=== PATIENT | female | born 1950 | race Caucasian/White ===

== ENCOUNTER 2018-09-30 12:21 | Emergency (ER) | payer MEDICARE, OTHER, SELFPAY ==
[2018-09-30 12:22] VITALS: BP 125/63; PULSE 90; RESP 23; TEMP 36.4; O2SAT 93; BMI 30.2
--- NOTE | 2018-09-30 12:33 | XR_ITS ---
XR chest 2V HISTORY: Shortness of air, chest pain, COPD ITS.REASON: chest pain ORDERING PHYSICIAN: Mazin Bhatia MD PATIENT AGE: 68 years COMPARISON: 02/26/2009 FINDINGS: The cardiomediastinal silhouette and pulmonary vascularity are within normal limits. Old granulomatous disease. COPD. Atelectatic or fibrotic change in the right midlung.. There is patchy density in the left lower lobe which may related to an area of atelectasis or infiltrate versus progressive chronic changes. The remaining lungs are clear. No acute bony findings. IMPRESSION: COPD with patchy density in the left lung base. Cannot exclude underlying atelectasis or infiltrate
--- NOTE | 2018-09-30 12:34 | PC.NURSE ---
aspirin given by [facility] [id number]
--- NOTE | 2018-09-30 12:39 | PC.NURSE ---
pt gone to xray
--- NOTE | 2018-09-30 12:40 | HMH.EDGENADL ---
ED Disposition Clinical Impression: Precordial chest pain Disposition: Home, Self-Care Condition on Discharge: Good Instructions: DI for Chest Pain Additional Instructions: See Dr. Torres, LISY Walker, for Dr. Torres Wednesday in the office as instructed. Stop taking hydralazine. Increase metoprolol as instructed. Additional instructions for CHEST PAIN: Return immediately if worsening chest pain, vomiting, shortness of breath, fever, coughing of blood. Referrals: Yuridia Joseph [Primary Care Provider] - - Critical Care Critical Care Time: No Attestation: On 09/30/18, the high probability of a clinically significant, sudden or life threatening deterioration of the following system(s) required my full and direct attention, intervention and personal management. The time I documented below is in addition to time spent performing reported procedures but includes the following listed in this critical care notation. Medical Decision Making - Manny Inquiry Pt receiving controlled substance: No Vital Signs: 09/30/18 12:22 09/30/18 13:30 09/30/18 14:27 Temperature 97.6 F Temperature Source Oral Pulse Rate [Left Radial] 90 70 78 Respiratory Rate 23 Blood Pressure [Right Arm] 125/63 117/60 111/60 Blood Pressure Mean [Right Arm] 83 79 77 Blood Pressure Source [Right Arm] Automatic Cuff Blood Pressure Position [Right Arm] Sitting 02 Sat by Pulse Oximetry 93 L 93 L 95 Oxygen Delivery Method Room Air 09/30/18 15:00 09/30/18 15:50 Temperature Temperature Source Pulse Rate [Left Radial] 87 81 Respiratory Rate Blood Pressure [Right Arm] 119/61 134/80 Blood Pressure Mean [Right Arm] 80 98 Blood Pressure Source [Right Arm] Blood Pressure Position [Right Arm] 02 Sat by Pulse Oximetry 96 97 Oxygen Delivery Method - Lab Data Lab Results 09/30/18 12:40: WBC 9.1, RBC 3.83 L, Hgb 11.9 L, Hct 35.4 L, MCV 92.4, MCH 30.9, MCHC 33.5, RDW 14.4, Plt Count 183, MPV 8.6, Neut % (Auto) 84.7 H, Lymph % (Auto) 9.4 L, Holmes % (Auto) 4.8, Eos % (Auto) 0.7, Baso % (Auto) 0.5, Neut # (Auto) 7.7, Lymph # (Auto) 0.9, Holmes # (Auto) 0.4, Eos # (Auto) 0.1, Baso # (Auto) 0.1 09/30/18 12:40: Sodium 137, Potassium 3.8, Chloride 102, Carbon Dioxide 27, Anion Gap 11.8, BUN 25 H, Creatinine 1.27 H, Estimated Creat Clear 56, Estimated GFR 42 L, Est GFR ( Amer) 50 L, Glucose 256 H, Calcium 8.6, Troponin I < 0.02 09/30/18 15:20: Troponin I < 0.02 Result diagrams: 09/30/18 12:40 09/30/18 12:40 Orders (Tests/Meds): ED MEDICATIONS Discontinued Medications Generic Name Dose Route Start Last Admin Trade Name Freq PRN Reason Stop Dose Admin Perflutren Lipid Microsphere 1 mg 09/30/18 15:31 Definity Us Echo Contrast 2ml Vial IV 09/30/18 15:32 ONCE ONE Perflutren Lipid Microsphere 1 mg 09/30/18 15:34 Definity Us Echo Contrast 2ml Vial IV 09/30/18 15:35 ONCE ONE ORDERS Category Date Time Status Drug Screen,Urine Stat Lab 09/30/18 13:02 Ordered - Radiology Data #1 Image(s): Chest Image Reviewed: Yes I reviewed the patient's radiology image Calcified granulomas, scar R mid-lung. - ECG Data Tracing #1 EKG interpreted by Mazin Bhatia MD: Rhythm: sinus Rate: 97 [place]: normal Ectopy: none Conduction: QTC [address] Segment Changes: none T Wave Changes: none Q Waves: none No evidence of acute ischemia or injury Prior electrocardiagrams reviewed. No change from prior tracings. - Physician Consults Physician Consulted: LISY Walker, for Dr. Torres Time: 14:00 Reason -: Cardiology Eval/Care Comment/Response: He will see the patient Medical Decision Narrative: 12:05 PM: Call placed to [place] for discharge summary. Call placed to LISY Walker, for Dr. Torres for consultation Tahir reports echocardiogram normal to hyperdynamic. If second troponin normal, discharged to home and follow-up in their office Wednesday and they wi
--- NOTE | 2018-09-30 12:53 | PC.NURSE ---
pt return from xray
[2018-09-30 13:03] LABS: Basophils # 0.1 K/mm3 (0-0.2); Basophils % 0.5 % (0.1-2.0); Eosinophils # 0.1 K/mm3 (0.0-0.4); Eosinophils % 0.7 % (0.1-12.0); Hematocrit 35.4 % (37.0-47.0); Hemoglobin 11.9 g/dL (12.2-16.2); Lymphocytes # 0.9 K/mm3 (0.7-4.5); Lymphocytes % 9.4 % (10-50); Mean Corpuscular HGB Conc 33.5 g/dL (31.8-35.4); Mean Corpuscular Hemoglobin 30.9 pg (27.0-31.2); Mean Corpuscular Volume 92.4 fl (81-99); Mean Platelet Volume 8.6 fl (7.4-10.4); Monocytes # 0.4 K/mm3 (0.1-1.0); Monocytes % 4.8 % (1.7-9.3); Neutrophils # 7.7 K/mm3 (1.8-7.8); Neutrophils % 84.7 % (37.0-80.0); Platelet Count 183 K/mm3 (142-424); Red Blood Count 3.83 M/mm3 (4.20-5.40); Red Cell Distribution Width 14.4 % (11.5-17.5); White Blood Count 9.1 K/mm3 (4.8-10.8)
--- NOTE | 2018-09-30 13:12 | PC.NURSE ---
called [facility] to request er records from 09/29 visit
[2018-09-30 13:18] LABS: Anion Gap 11.8 mEq/L (5-15); Blood Urea Nitrogen 25 mg/dL (7-18); Calcium 8.6 mg/dL (8.5-10.1); Carbon Dioxide 27 mmol/L (21.0-32.0); Chloride 102 mmol/L (98-107); Creatinine Clearance Estimated 56 mL/min (50-200); Creatinine,Serum 1.27 mg/dL (0.55-1.02); Estimated Glomerular Filt Rate 42 ml/min (>60); GFR (African American) 50 ML/MIN (>60); Glucose 256 mg/dL (74-106); Potassium 3.8 mmoL/L (3.5-5.1); Sodium 137 mmol/L (136-145); Troponin I < 0.02 ng/ml (0.00-0.06)
[2018-09-30 13:30] VITALS: BP 117/60; PULSE 70; O2SAT 93
--- NOTE | 2018-09-30 14:02 | PC.NURSE ---
called [facility] records to check on status of records being sent
--- NOTE | 2018-09-30 14:15 | PC.NURSE ---
Tahir WASSERMAN at bedside
--- NOTE | 2018-09-30 14:19 | CA_ITS ---
PROCEDURE: 2-D M-mode and color Doppler study INDICATIONS FOR THE TEST: Chest pain+ COPD+ Heart Murmur+ Tobacco SmokingEX Palpitations+ Fatigue+ Syncope Edema+ Hypertension+Diabetes Mellitus Rheumatic Fever+ SOB+MCKAY+Obesity+Hyperlipidemia+ Family History HD Additional History PATIENT INFORMATION HEIGHT: 66 WEIGHT: 187 GENDER: Female B/P: 117/60 2-D/M-MODE INTERPRETATION: 2-D MEASUREMENTS OBSERVED VALUES IN CMS Right Ventricular Dimension (RVDd) 3.0 Interventricular Septum (Thickness)(IVsd) 1.0 Left Ventricular Internal Dimensions(LVIDd) 3.8 Left Ventricular Posterior Wall (Thickness)(LVPWd) 1.0 Aortic Root 3.2 Aortic Cusp Separation 2.1 Left Atrial Dimensions (LAD) 4.3 2D 1. Technically difficult study due to patient's factor and poor acoustic windows. Definity contrast was utilized to delineate endocardial surfaces. 2. Left atrium is mildly enlarged, left ventricle is normal size, mild concentric left ventricular hypertrophy, visually estimated ejection fraction over 65%, left ventricle is hyperdynamic, there is no regional wall motion abnormality. 3. The right atrium and right ventricle are mildly enlarged with normal contractility. 4. The aortic valve is minimally thickened and fibrosed. 5. The mitral valve has mitral calcification, leaflets are minimally thickened. 6. Tricuspid valve is grossly normal. 7. The pulmonic valve is poorly visualized. 8. No significant pericardial effusion noted. DOPPLER INTERROGATION: Doppler interrogation of the aortic, mitral and tricuspid valvular presence of mild mitral and tricuspid regurgitation, tricuspid regurgitation jet velocity is inadequate for calculation of the right ventricular systolic pressure, grade 1 diastolic dysfunction seen with tissue Doppler evidence of raised left atrial pressure. CONCLUSION: 1. Technically difficult study because of the patient's factor and poor acoustic windows, Definity contrast was placed to delineate endocardial surfaces. 2. Mildly enlarged left atrium, normal left ventricular size, mild concentric left ventricular hypertrophy, visually estimated ejection fraction of over 65% with no regional wall motion abnormality, left ventricle is hyperdynamic. Grade 1 diastolic dysfunction seen with tissue Doppler evidence of raised left atrial pressure. 3. Mild mitral and tricuspid regurgitation 4. No significant pericardial effusion noted.
[2018-09-30 14:27] VITALS: BP 111/60; PULSE 78; O2SAT 95
--- NOTE | 2018-09-30 14:28 | PC.NURSE ---
cardiovascular surgical tech @ bedside to do echo
[2018-09-30 15:00] VITALS: BP 119/61; PULSE 87; O2SAT 96
--- NOTE | 2018-09-30 15:38 | HMH.CNCARD ---
History of Present Illness Consult date: 09/30/18 Consult reason: chest pain Chief complaint: chest pain Additional Medical History:: 1. DM, previously treated for 10 yrs, now on no meds per patient 2. HTN 3. HLD, on statin 4. Palpitations 5. GERD 6. Poor historian 7. History of tobacco use of 2 packs/day for 10 years discontinued more than 1 year ago A. Reportedly has COPD History of present illness: History from patient and . She has been having problems with chest pain for over a week. She has been to [facility] emergency department 3 different times. Twice last week, one day apart. The second time she says that she was transferred to [facility] and was there for a couple of days. She says they did serial cardiac enzymes and EKGs. She denies having stress test, echocardiogram, or heart cath. She also was at the emergency room yesterday. She saw her primary care doctor this morning and was started on some new medications. She has been told that she is having panic attacks. She had another episode today and says that she is through with [place] . Brought here by ambulance. She says the episodes consist of burning in her sternal area of her chest and pain in both arms with shortness of breath, nausea, diaphoresis. Episodes usually last about 1/2-hour. states that her blood pressure and heart rate go up with the episodes. She has taken her 's nitroglycerin once last week which relieved the pain. She says that she is currently pain-free. She denies ever having a previous cardiac work-up, no prior stress test or cardiac cath. States she has no known heart disease The above per Dr. Bhatia Cardiology consulted for evaluation recommendations The patient does relate some discomfort in the back between her shoulder blades which seems to be associated with the episodes of chest pain although the patient is not entirely clear about this. At one point she says the symptoms have been going on for 2 weeks and another time she says they have been going on for several months. Patient is a very difficult historian and the story seems to change slightly with more invasive questioning. Echocardiogram performed today shows preserved to slightly hyperdynamic left ventricular ejection fraction with mild valvular insufficiencies. No appreciable wall motion abnormality noted. EKG is sinus rhythm with with telemetry showing frequent PACs. [facility] History Medical History: Reports:: Hyperlipidemia, Hypertension Denies:: Diabetes Mellitus Type 1, Diabetes Mellitus Type 2, Myocardial Infarction - *Social History Smoking Status: Former smoker Alcohol Intake: never Substance Use Type: crack/cocaine *Occupational Status:: retired *Travel in the last 8 weeks: None - Psychiatric History Expresses thoughts of harming self/others: None Suicide Plan Description: No Plan Family Hx:: Other (Pacemaker, mother) Meds Home Medications Medication Instructions Recorded Confirmed Type Fluoxetine HCl 20 mg PO DIRECTED 09/30/18 09/30/18 History Furosemide [Lasix 40mg tab] 40 mg PO DIRECTED 09/30/18 09/30/18 History Gabapentin [Gabapentin 300mg Cap] 300 mg PO DIRECTED 09/30/18 09/30/18 History Hydralazine HCl 50 mg PO DIRECTED 09/30/18 09/30/18 History Metoprolol Succinate [Toprol Xl] 100 mg PO DIRECTED 09/30/18 09/30/18 History Naltrexone HCl/Bupropion HCl 1 each PO DIRECTED 09/30/18 09/30/18 History [Contrave ER 8-90 mg Tablet] Pantoprazole Sodium [Protonix 40mg 40 mg PO DIRECTED 09/30/18 09/30/18 History tablet] Pravastatin Sodium [Pravachol] 20 mg PO DIRECTED 09/30/18 09/30/18 History Tizanidine HCl 4 mg PO DIRECTED 09/30/18 09/30/18 History Venlafaxine HCl 75 mg PO DIRECTED 09/30/18 09/30/18 History Allergies Allergy/AdvReac Type Severity Reaction Status Date / Time codeine [CODEINE] Allergy Mild Verified 09/30/18 12:35 Review of Systems - *Cardiovascul
[2018-09-30 15:41] LABS: Troponin I < 0.02 ng/ml (0.00-0.06)
[2018-09-30 15:50] VITALS: BP 134/80; PULSE 81; O2SAT 97
[2018-09-30 16:03] VITALS: BP 134/80; PULSE 86; RESP 19; TEMP 36.3; O2SAT 94
== END 2018-09-30 16:03 | disposition home or self-care (01) ==
PROVIDERS: Emergency Provider Emergency Medicine; PCP Family Medicine
DX: R07.9 Chest pain, unspecified (principal); F41.0 Panic disorder [episodic paroxysmal anxiety]; Z51.81 Encounter for therapeutic drug level monitoring; Z88.5 Allergy status to narcotic agent; E78.5 Hyperlipidemia, unspecified; I10 Essential (primary) hypertension; Z87.891 Personal history of nicotine dependence
CPT/HCPCS: 36415; 71046; 80048; 84484; 85025; 93005; 93306; 99284

== ENCOUNTER → 2018-10-20 08:20 | Outpatient (CLI) | payer MEDICARE, OTHER, SELFPAY ==
[2018-10-20 10:07] LABS: Anion Gap 15.4 mEq/L (5-15); Blood Urea Nitrogen 31 mg/dL (7-18); Calcium 9.4 mg/dL (8.5-10.1); Carbon Dioxide 30 mmol/L (21.0-32.0); Chloride 103 mmol/L (98-107); Creatinine,Serum 1.46 mg/dL (0.55-1.02); Estimated Glomerular Filt Rate 36 ml/min (>60); GFR (African American) 43 ML/MIN (>60); Glucose 101 mg/dL (74-106); Potassium 4.4 mmoL/L (3.5-5.1); Sodium 144 mmol/L (136-145)
== END ==
PROVIDERS: Visit Provider Nurse Practitioner Family
DX: E11.69 Type 2 diabetes mellitus with other specified complication (principal); E66.9 Obesity, unspecified; E78.5 Hyperlipidemia, unspecified; F14.11 Cocaine abuse, in remission; I10 Essential (primary) hypertension; I20.9 Angina pectoris, unspecified; R06.00 Dyspnea, unspecified; Z87.891 Personal history of nicotine dependence
CPT/HCPCS: 36415; 80048

== ENCOUNTER 2022-11-19 22:36 | Observation (INO) | payer MEDICARE, OTHER, SELFPAY ==
[2022-11-19 22:36] VITALS: BP 172/105; PULSE 113; RESP 24; TEMP 37.1; O2SAT 98; BMI 32.4
--- NOTE | 2022-11-19 22:37 | CT_ITS ---
PROCEDURE INFORMATION: Exam: CT Head Without Contrast Exam date and time: 11/19/2022 10:22 PM Age: 72 years old Clinical indication: Stroke-like symptoms; Altered mental status/memory loss; Additional info: Stroke alert TECHNIQUE: Imaging protocol: Computed tomography of the head without contrast. Radiation optimization: All CT scans at this facility use at least one of these dose optimization techniques: automated exposure control; mA and/or kV adjustment per patient size (includes targeted exams where dose is matched to clinical indication); or iterative reconstruction. Other technique: STROKE PROTOCOL was implemented. REPORTING DATA: Count of CT and Cardiac NM exams in prior 12 months: This patient has received 0 known CTs and 0 known cardiac nuclear medicine studies in the 12 months prior to the current study. COMPARISON: No relevant prior studies available. FINDINGS: Brain: Atrophy and chronic small vessel ischemic changes. No hemorrhage. No mass effect or midline shift. Cerebral ventricles: No ventriculomegaly. Paranasal sinuses: Visualized sinuses are unremarkable. No fluid levels. Mastoid air cells: Visualized mastoid air cells are well aerated. Bones/joints: Unremarkable. No acute fracture. Soft tissues: Unremarkable. IMPRESSION: Chronic changes in the brain but no acute intracranial abnormality. ASSESSMENT: ASPECTS ([place] Stroke Program Early CT Score) is 10.
--- NOTE | 2022-11-19 22:42 | XR_ITS ---
PROCEDURE INFORMATION: Exam: XR Pelvis Exam date and time: 11/19/2022 11:45 PM Age: 72 years old Clinical indication: Injury or trauma; Fall; Blunt trauma (contusions or hematomas); Does not apply; Pelvic region TECHNIQUE: Imaging protocol: Radiologic exam of the pelvis. Views: 1 or 2 view. COMPARISON: CT LUMBAR SPINE WO CON 11/19/2022 11:42 PM FINDINGS: Bones/joints: Unremarkable. No acute fracture. Soft tissues: Unremarkable. IMPRESSION: No acute findings.
--- NOTE | 2022-11-19 22:42 | XR_ITS ---
PROCEDURE INFORMATION: Exam: XR Chest Exam date and time: 11/19/2022 11:45 PM Age: 72 years old Clinical indication: Injury or trauma; Fall; Blunt trauma (contusions or hematomas) TECHNIQUE: Imaging protocol: Radiologic exam of the chest. Views: 1 view. COMPARISON: CT CHEST WO CON 11/19/2022 11:44 PM FINDINGS: Lungs: Coarse interstitial lung markings likely chronic. Granulomatous change. No consolidation. Pleural spaces: Unremarkable. No pleural effusion. No pneumothorax. Heart/Mediastinum: Unremarkable. No cardiomegaly. Bones/joints: Unremarkable. IMPRESSION: No acute findings.
--- NOTE | 2022-11-19 22:42 | CT_ITS ---
PROCEDURE INFORMATION: Exam: CT Cervical Spine Without Contrast Exam date and time: 11/19/2022 11:37 PM Age: 72 years old Clinical indication: Injury or trauma; Fall TECHNIQUE: Imaging protocol: Computed tomography of the cervical spine without contrast. Radiation optimization: All CT scans at this facility use at least one of these dose optimization techniques: automated exposure control; mA and/or kV adjustment per patient size (includes targeted exams where dose is matched to clinical indication); or iterative reconstruction. REPORTING DATA: Count of CT and Cardiac NM exams in prior 12 months: This patient has received 0 known CTs and 0 known cardiac nuclear medicine studies in the 12 months prior to the current study. COMPARISON: CT HEAD/BRAIN WO CON 11/19/2022 10:22 PM FINDINGS: Bones/joints: No acute fracture. Normal alignment. No significant disc bulge or herniation. No severe spinal canal stenosis. No significant neural foraminal narrowing. Lungs: Lung apices are normal. Soft tissues: Unremarkable. IMPRESSION: No acute findings.
--- NOTE | 2022-11-19 22:42 | CT_ITS ---
PROCEDURE INFORMATION: Exam: CT Lumbar Spine Without Contrast Exam date and time: 11/19/2022 11:42 PM Age: 72 years old Clinical indication: Injury or trauma; Fall TECHNIQUE: Imaging protocol: Computed tomography of the lumbar spine without contrast. Radiation optimization: All CT scans at this facility use at least one of these dose optimization techniques: automated exposure control; mA and/or kV adjustment per patient size (includes targeted exams where dose is matched to clinical indication); or iterative reconstruction. REPORTING DATA: Count of CT and Cardiac NM exams in prior 12 months: This patient has received 0 known CTs and 0 known cardiac nuclear medicine studies in the 12 months prior to the current study. COMPARISON: CT THORACIC SPINE WO CON 11/19/2022 11:39 PM FINDINGS: Bones/joints: No acute fracture. Normal alignment. No significant disc bulge or herniation. No severe spinal canal stenosis. No significant neural foraminal narrowing. Soft tissues: Unremarkable. IMPRESSION: No acute findings.
--- NOTE | 2022-11-19 22:42 | CT_ITS ---
PROCEDURE INFORMATION: Exam: CT Chest Without Contrast; Diagnostic Exam date and time: 11/19/2022 11:44 PM Age: 72 years old Clinical indication: Injury or trauma; Fall TECHNIQUE: Imaging protocol: Diagnostic computed tomography of the chest without contrast. Radiation optimization: All CT scans at this facility use at least one of these dose optimization techniques: automated exposure control; mA and/or kV adjustment per patient size (includes targeted exams where dose is matched to clinical indication); or iterative reconstruction. REPORTING DATA: Count of CT and Cardiac NM exams in prior 12 months: This patient has received 0 known CTs and 0 known cardiac nuclear medicine studies in the 12 months prior to the current study. COMPARISON: CT THORACIC SPINE WO CON 11/19/2022 11:39 PM FINDINGS: Lungs: 3 mm pulmonary nodule in the right lower lobe. No consolidation. No masses. Pleural spaces: Unremarkable. No pneumothorax. No pleural effusion. Heart: Unremarkable. No cardiomegaly. No pericardial effusion. Lymph nodes: Unremarkable. No enlarged lymph nodes. Vasculature: Unremarkable. No aortic aneurysm. Diffuse esophageal wall thickening concerning for esophagitis. Bones/joints: Unremarkable. No acute fracture. Soft tissues: Unremarkable. IMPRESSION: No acute posttraumatic findings. Diffuse esophageal wall thickening concerning for esophagitis.
--- NOTE | 2022-11-19 22:42 | CT_ITS ---
PROCEDURE INFORMATION: Exam: CT Abdomen And Pelvis Without Contrast Exam date and time: 11/19/2022 11:47 PM Age: 72 years old Clinical indication: Injury or trauma; Fall TECHNIQUE: Imaging protocol: Computed tomography of the abdomen and pelvis without contrast. Radiation optimization: All CT scans at this facility use at least one of these dose optimization techniques: automated exposure control; mA and/or kV adjustment per patient size (includes targeted exams where dose is matched to clinical indication); or iterative reconstruction. REPORTING DATA: Count of CT and Cardiac NM exams in prior 12 months: This patient has received 0 known CTs and 0 known cardiac nuclear medicine studies in the 12 months prior to the current study. COMPARISON: CR XR PELVIS 1-2V 11/19/2022 11:45 PM FINDINGS: Tubes, catheters and devices: Hoover catheter. Mediastinal space: Distal esophageal wall thickening. Liver: Normal. No mass. Gallbladder and bile ducts: Normal. No calcified stones. No ductal dilation. Pancreas: Normal. No ductal dilation. Spleen: Calcifications in the spleen. Adrenal glands: Normal. No mass. Kidneys and ureters: Normal. No hydronephrosis. Stomach and bowel: Diverticulosis in the sigmoid without diverticulitis. No colitis or small bowel obstruction Appendix: No evidence of appendicitis. Intraperitoneal space: Unremarkable. No free air. No significant fluid collection. Vasculature: Unremarkable. No abdominal aortic aneurysm. Lymph nodes: Unremarkable. No enlarged lymph nodes. Urinary bladder: Unremarkable as visualized. Reproductive: Unremarkable as visualized. Bones/joints: Unremarkable. No acute fracture. Soft tissues: Unremarkable. IMPRESSION: No acute findings.
--- NOTE | 2022-11-19 22:42 | CT_ITS ---
PROCEDURE INFORMATION: Exam: CT Thoracic Spine Without Contrast Exam date and time: 11/19/2022 11:39 PM Age: 72 years old Clinical indication: Injury or trauma; Fall TECHNIQUE: Imaging protocol: Computed tomography of the thoracic spine without contrast. Radiation optimization: All CT scans at this facility use at least one of these dose optimization techniques: automated exposure control; mA and/or kV adjustment per patient size (includes targeted exams where dose is matched to clinical indication); or iterative reconstruction. REPORTING DATA: Count of CT and Cardiac NM exams in prior 12 months: This patient has received 0 known CTs and 0 known cardiac nuclear medicine studies in the 12 months prior to the current study. COMPARISON: CT CERVICAL SPINE WO CON 11/19/2022 11:37 PM FINDINGS: Bones/joints: No acute fracture. Normal alignment. No significant disc bulge or herniation. No severe spinal canal stenosis. No significant neural foraminal narrowing. Soft tissues: Unremarkable. IMPRESSION: Unremarkable CT Spine.
[2022-11-19 22:47] LABS: Microscopic, Urine URINE MICROSCOPIC (MICROSCOPIC)
[2022-11-19 22:50] LABS: Appearance,Urine CLEAR (Clear); Bilirubin,Urine Negative (Negative); Blood, Urine Negative (Negative); Color,Urine STRAW (Yellow); Glucose,Urine (UA) Negative (Negative); Ketones,Urine Negative (Negative); Leukocyte Esterase,Urine Negative (Negative); Nitrate,Urine Negative (Negative); PH,Urine 5.5 (5.0-8.5); Protein,Urine Negative (Negative); Specific Gravity, Urine 1.015 (1.005-1.030); Urobilinogen,Urine 0.2 EU/dl (0.2)
[2022-11-19 22:53] LABS: Chloride 107 mmol/L (98-107); Potassium 4.3 mmoL/L (3.5-5.1); Sodium 145 mmol/L (136-145)
[2022-11-19 22:55] LABS: Alanine Aminotransferase 23 U/L (12-78); Blood Urea Nitrogen 19 mg/dl (7-17); Estimated Glomerular Filt Rate 70 ml/min (>60); GFR (African American) 85 ML/MIN (>60)
[2022-11-19 22:56] LABS: Albumin Level 4.2 g/dl (3.5-5.0); Albumin/Globulin Ratio 1.3 (1.1-1.8); Alkaline Phosphatase 128 U/L (38-126); Anion Gap 16.3 mEq/L (5-15); Aspartate Amino Transferase 36 U/L (14-36); Bilirubin,Total < 0.1 mg/dl (0.2-1.3); Calcium 9.3 mg/dl (8.4-10.2); Carbon Dioxide 26 mmol/L (22.0-30.0); Creatine Kinase 82 U/L (30-135); Globulin 3.3 g/dL (1.3-3.2); Glucose 97 mg/dl (74-100); Total Protein,Serum 7.5 g/dl (6.3-8.2)
[2022-11-19 23:02] LABS: Activated Partial Thrombo Time 23.6 seconds (22.8-30.6); INR 0.87 (0.9-1.1); Prothrombin Time 9.5 seconds (10.1-12.5)
[2022-11-19 23:05] LABS: Squamous Epithelial Cell,Urine Occasional #/hpf (0-5)
[2022-11-19 23:05] LABS: Ethyl Alcohol 301 mg/dl (0-10)
[2022-11-19 23:08] LABS: Troponin I < 0.01 ng/ml (0.00-0.034)
--- NOTE | 2022-11-19 23:08 | PC.NURSE ---
ASSISTED RN IN PLACING URINARY CATH, BED CHANGED AND PATIENT REPOSITIONED FOR COMFORT, LIGHTS TURNED DOWN
[2022-11-19 23:31] VITALS: BP 197/93; PULSE 98; RESP 24; O2SAT 97
[2022-11-20] VITALS (17 sets, daily range): BP systolic 115–187; BP diastolic 56–86; PULSE 64–97; RESP 14–20; TEMP 36.6–37.2; O2SAT 92–99; BMI 30.9
--- NOTE | 2022-11-20 00:07 | PC.NURSE ---
pt vomited on herself while xr was at bedside, pt was cleaned up and changed into a new gown, sheets, and c-collar
[2022-11-20 00:48] LABS: Basophils # 0.1 K/mm3 (0-0.2); Basophils % 0.6 % (0.1-2.0); Eosinophils # 0.5 K/mm3 (0.0-0.4); Eosinophils % 4.5 % (0.1-12.0); Hematocrit 41.3 % (37.0-47.0); Hemoglobin 13.2 g/dL (12.2-16.2); Lymphocytes # 3.5 K/mm3 (0.7-4.5); Mean Corpuscular HGB Conc 31.9 g/dL (31.8-35.4); Mean Corpuscular Hemoglobin 30.8 pg (27.0-31.2); Mean Corpuscular Volume 96.4 fl (81-99); Mean Platelet Volume 9.4 fl (7.4-10.4); Monocytes # 0.5 K/mm3 (0.1-1.0); Monocytes % 4.8 % (1.7-9.3); Neutrophils # 6.4 K/mm3 (1.8-7.8); Neutrophils % 58.1 % (37.0-80.0); Platelet Count 312 K/mm3 (142-424); Red Blood Count 4.28 M/mm3 (4.20-5.40); Red Cell Distribution Width 15.1 % (11.5-17.5)
[2022-11-20 01:40] LABS: ABG Base Excess -2.1 mmol/L (-2.4-2.3); ABG Oxygen Saturation 96 % (90-100); ABG PCO2 40.1 mmhg (35.0-45.0); ABG PH 7.38 mmol/L (7.35-7.45); ABG PO2 88.8 mmhg (80-100); ABG TCO2 24.3 mmhg (23-27)
[2022-11-20 01:41] LABS: Allen's Test Patient Unable; Oxygen 2LPM %; Source Left Radial
[2022-11-20 01:45] LABS: Coronavirus 19, PCR Not Detected (NotDetected); Influenza A, PCR Not Detected (NotDetected); Influenza B, PCR Not Detected (NotDetected)
--- NOTE | 2022-11-20 02:00 | HMH.EDAMS ---
Discharge Plan Disposition Patient Disposition: Admitted Condition: Fair Clinical Impressions Clinical Impression: Fall, Alcohol intoxication, Esophagitis Discharge ED Provider: Holly Ron Altered Mental Status HPI General Chief Complaint: Altered Mental Status Stated Complaint: STROKE ALERT Time Seen by Provider: 11/19/22 22:40 Mode of Arrival: EMS Source of Information: Patient, Relative, EMS and Medical Record Limitations: Altered Mental Status Description of Symptoms (Recalled from ER Triage Doc. by RN): Pt c/o fall tonight. She c/o pain everywhere . She is Alert and oriented to name. Reports the year to be 1921 . She is unable to give a good history of what transpired today. EMS report she fell when her fell into her approx 1999 tonight. is also a poor historian of events. Since this time she has been not acting right . Pt has been yelling, cursing, and swinging arms at staff. She has vomitied several times in route, EMS gave zofran 4mg IVP. Scattered brusing & scabs noted t/o body. Dried dark brown appearance of emesis to pt's face. History of Present Illness HPI narrative: Patient is a 72-year-old female who is here secondary to mental status change. Patient fell tonight. EMS brought her and said that she was confused and her said that she was normal at 80 p.m. Patient was stroke alerted and went to CT. I saw the patient and put the patient in cervical collar. Patient does not give good history however is alert and oriented to person, place and initially told the nurses 1919 but later on told me 2022 but not situation. EMS stated the house situation looks bad. There is lots of holding of things in the house. And patient was laying in emesis and food products and garbage. Patient had stool diarrhea running down her leg. She had emesis around her mouth. Patient was given Zofran 4 mg IV push. Patient also has a history of fall. Patient does drink alcohol and said to the nursing staff that she drinks gin dim. Blood glucose was 167. complaint: altered mental status Onset (ago): hour(s) Timing confirmed by: spouse Severity: moderate Consistency of symptoms: constant Context: alcohol abuse and diabetes Associated symptoms: nausea/vomiting Treatments prior to arrival: IV fluid Related Data Home Medications Medication Instructions Recorded Confirmed gabapentin 300 mg capsule 300 mg PO DIRECTED Pain 09/30/18 10/03/18 pantoprazole 40 mg tablet,delayed 40 mg PO DAILY ppi 10/03/18 10/03/18 release tizanidine 4 mg capsule 4 mg PO ONCE PRN muscles 10/03/18 10/03/18 coenzyme Q10 100 mg capsule (Co 100 mg PO DAILY 11/23/18 11/23/18 Q-10) pravastatin 20 mg tablet 40 mg PO DAILY Cholesterol 11/23/18 Previous Rx's Medication Instructions Recorded aspirin 81 mg tablet,delayed 81 mg PO DAILY #30 tabs 10/03/18 release (Adult Low Dose Aspirin) lisinopril 40 mg tablet 40 mg PO BID #60 tabs 10/12/18 metoprolol succinate 100 mg 100 mg PO DAILY Hypertension #30 10/20/18 tablet,extended release 24 hr tabs furosemide 40 mg tablet 80 mg PO DAILY diuretic #60 tabs 11/23/18 isosorbide mononitrate 30 mg 30 mg PO DAILY #30 tabs 11/23/18 tablet,extended release 24 hr diltiazem HCl 120 mg 240 mg PO DAILY #90 caps 02/01/19 capsule,extended release 24 hr Allergies Allergy/AdvReac Type Severity Reaction Status Date / Time codeine [CODEINE] Allergy Mild Verified 11/23/18 13:51 [facility] Disclaimer: The information contained in this section may have been updated after the patient was seen, as this information can be updated by other users. Medical History (Updated 11/20/22 @ 02:11 by Fco Rey DNP) COPD (chronic obstructive pulmonary disease) Hyperlipidemia Hypertension Social History Smoking Status: Current every day smoker alcohol intake: never substance use type: crack/cocaine current occupational sta
--- NOTE | 2022-11-20 02:02 | EXP.HP ---
History of Present Illness *Admission Date: 11/20/22 *Reason for visit:: Fall *History of present illness: Ms. Parry is a 72-year-old female with a past medical history of COPD, home oxygen dependent at 2L, HTN and Hyperlipidemia. She presents to [facility] due to a fall that occurred in the home. Information for the H/P for the patient was obtained from the patient's who is also being admitted due to a fall in the home. The reports that the had fallen first, he reports that they had a bottle of wine in the home for special occasions and the drank the bottle of wine that he feels resulted in the patient falling, he reports that when he went to help the patient he fell. He reports that he called 911. EMS reported unsafe conditions and brought both the patient and the into the ER. In the ER, the patient underwent multiple imaging that included: CT head, Chest, Spine, and abdomen and pelvis that showed no acute findings. ABG was unremarkable. CBC and CMP were unremarkable. Alcohol level was 301. In the ER the patient was noted to be agitated and received Ativan 0.5 mg iv. The patient will be admitted with initial impression: Falls, Residence Manager will be consulted in the am for evaluation of home condition. [facility] Disclaimer: The information contained in this section may have been updated after the patient was seen, as this information can be updated by other users. Medical History (Updated 11/20/22 @ 02:11 by Fco Rey DNP) COPD (chronic obstructive pulmonary disease) Hyperlipidemia Hypertension Social History Smoking Status: Current every day smoker alcohol intake: never substance use type: crack/cocaine current occupational status: retired Travel in the last 8 weeks: Inside the [place] household members: spouse Review of Systems Review of Systems Review of systems:: unable to obtain Meds Home Medications and Allergies Home Medications Medication Instructions Recorded Confirmed Type gabapentin 300 mg capsule 300 mg PO DIRECTED Pain 09/30/18 10/03/18 History aspirin 81 mg tablet,delayed 81 mg PO DAILY #30 tabs 10/03/18 10/03/18 Rx release (Adult Low Dose Aspirin) pantoprazole 40 mg tablet,delayed 40 mg PO DAILY ppi 10/03/18 10/03/18 History release tizanidine 4 mg capsule 4 mg PO ONCE PRN muscles 10/03/18 10/03/18 History lisinopril 40 mg tablet 40 mg PO BID #60 tabs 10/12/18 10/12/18 Rx metoprolol succinate 100 mg 100 mg PO DAILY Hypertension #30 10/20/18 Rx tablet,extended release 24 hr tabs coenzyme Q10 100 mg capsule (Co 100 mg PO DAILY 11/23/18 11/23/18 History Q-10) furosemide 40 mg tablet 80 mg PO DAILY diuretic #60 tabs 11/23/18 Rx isosorbide mononitrate 30 mg 30 mg PO DAILY #30 tabs 11/23/18 11/23/18 Rx tablet,extended release 24 hr pravastatin 20 mg tablet 40 mg PO DAILY Cholesterol 11/23/18 History diltiazem HCl 120 mg 240 mg PO DAILY #90 caps 02/01/19 Rx capsule,extended release 24 hr New Prescriptions to Start Prescriptions: Allergies Allergy/AdvReac Type Severity Reaction Status Date / Time codeine [CODEINE] Allergy Mild Verified 11/23/18 13:51 Exam Data for Last 24 hours Vital signs and Labs for Last 24 Hours: Temp Pulse Resp BP Pulse Ox 98.7 F 78 16 155/75 H 96 11/19/22 22:36 11/20/22 01:30 11/20/22 01:30 11/20/22 01:30 11/20/22 01:30 Laboratory Results - last 24 hr 11/19/22 22:20: Urine Color Straw, Urine Appearance Clear, Urine pH 5.5, Ur Specific Bronson 1.015, Urine Protein Negative, Urine Glucose (UA) Negative, Urine Ketones Negative, Urine Blood Negative, Urine Nitrate Negative, Urine Bilirubin Negative, Urine Urobilinogen 0.2, Ur Leukocyte Esterase Negative, Urine RBC None, Urine WBC None, Ur Squamous Epith Cells Occasional, Urine Bacteria None 11/19/22 22:30: PT 9.5 L, INR 0.87 L, APTT 23.6 0
--- NOTE | 2022-11-20 02:18 | PC.NURSE ---
Called report to the floor
[2022-11-20 02:23] LABS: Amphetamine/Metha Screen,Urine Negative ng/ml (<1000); Barbiturates Screen,Urine Negative ng/ml (<200)
[2022-11-20 02:24] LABS: Benzodiazepines Screen,Urine Negative ng/ml (<200)
[2022-11-20 02:25] LABS: Cannabinoid Screen,Urine Positive ng/ml (<50); Cocaine Screen,Urine Negative ng/ml (<300)
--- NOTE | 2022-11-20 02:25 | ECG_ITS ---
APPROVED REPORT Exam: Resting ECG HR:86 bpm ECG Measurements Heart Rate 86 AXES AK 183 P 68 QRSd 93 QRS 53 QT 366 T 50 QTc 409 Conclusion SINUS RHYTHM Isolated Q in III BORDERLINE ECG UNCONFIRMED REPORT Electronically signed by : Dave Goff MD 11/20/2022 21:29:07
[2022-11-20 02:26] LABS: Methadone Screen,Urine Negative ng/ml (<300)
[2022-11-20 02:27] LABS: Opiate Screen,Urine Negative ng/ml (<300); Phencyclidine Screen,Urine Negative ng/ml (<25)
--- NOTE | 2022-11-20 02:42 | PC.NURSE ---
Pt arrived to the floor via stretcher @1902
--- NOTE | 2022-11-20 04:07 | PC.NURSE ---
Patient arrived to the floor. Patient received Ativan in ER before coming to the floor. Patient was resting. RN attempted to do admission, but patient would not stay awake. RN completed home medication reconciliation from home medication brought in. The rest of the admission was done with the medical history already provided in the chart. Patient is resting in bed. with the bed alarm on.
[2022-11-20 07:02] LABS: Troponin I < 0.01 ng/ml (0.00-0.034)
--- NOTE | 2022-11-20 07:15 | HMH.PHAINT1 ---
Pharmacy Intervention Comments: MEDICATION RECONCILIATION COMPLETED ON PATIENT USING EXTERNAL FILL HISTORY FROM PHARMACY. -DENISE FINN, HANNAHD
--- NOTE | 2022-11-20 08:14 | PC.NURSE ---
COURTESY TECH NOTE; ROUNDED ON PT 0800, PT DENIED NEED FOR ASSISTANCE WITH RESTROOM. ASSISTED PRIMARY TECH WITH BATHING, AND REPOSITIONING PT IN BED. PRIMARY TECH SCRUBBED PT FEET WITH WASHCLOTH AND SOAP, PT FEET ARE STAINED BROWN DESPITE SCRUBBING. PT REQUESTING DRINK AT THIS TIME, EXPLAINED TO PT THAT SHE IS NPO AND NOTIFIED NURSE. CALL LIGHT WITHIN REACH, NO FURTHER REQUESTS AT THIS TIME. Leandra RIOS, SRNA
--- NOTE | 2022-11-20 09:29 | HMH.PTEV ---
Physical Therapy Evaluation Rehab PT IP Evaluation Start: 11/20/22 02:17 Freq: ONCE Status: Active Protocol: Document 11/20/22 09:22 SIMIN (Rec: 11/20/22 09:29 MAYAKIMBERLY [id number]) Subjective/History History History 72 yowf adm to [facility] after fall at home and esophagitis. She has hx of COPD with intermittent oxygen requirements, HTN, HLD. 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 Presented to the ED with EtOH intoxication. Subjective Subjective She reports feeling good this am, no c/o at this time. Rehab PT IP Eval Objective Appearance Patient Behavior Appropriate Patient Orientation Person,Place,Time Difficulty following instructions none Speech Pattern Clear Ambulation Patient Able to Ambulate Yes Ambulation Observation IP General Gait Pattern Observation No Deviations/Normal Ambulation Distance (feet) 30 Ambulation Assistive Device None Ambulation Ability Supervision/Stand by Balance Ability to Arise Able, uses arms to help Sitting Balance Steady, safe Standing Balance Steady, wide stance Dynamic Sitting Balance Ability Good Dynamic Standing Balance Ability Good Transfers Bed Transfer Ability Independent Chair Transfer Ability Independent Sit to Stand Bed Transfer Ability Independent Sit to Stand Chair Transfer Ability Independent ROM All Extremities PT ROM Status WFL MMT All Extremities PT MMT WFL Rehab PT IP prob,goals,plan Problems Date of Evaluation: 11/20/22 Discharge Plan PT Discharge Plan Pt appears to be at baseline for all mobility and is appropriate to return home once medically stable for d/c. G -code Required No Eval Complexity Eval Charge Codes 90668 - High Complexity PHYSICIAN CERTIFICATION: I certify the specified therapy services for Janeth Parry are required, authorized, and reviewed every 30 days.
--- NOTE | 2022-11-20 10:47 | PC.NURSE ---
PT AMBULATED WITH STAFF TO 'S ROOM, 206. AWARE AND FINE WITH THIS. PT TOLERATED VERY WELL. SITTING AT 'S BEDSIDE IN CHAIR AT THIS TIME.
--- NOTE | 2022-11-20 11:24 | SW/DCPLANNER ---
Addendum entered by [facility] 11/23/22 14:14: Patient does pay county taxes to [facility]: I have updated Anaid w/ [facility]. Anaid stated that she is unable to accept this patient due to not being homebound. Addendum entered by [facility] 11/23/22 11:37: [facility] can not accept this patient due to staffing issues. Patient information/order has been faxed to Esther eason/ [facility]. Addendum entered by [facility] 11/23/22 11:28: [facility] is out of network for patient's location. Patient information has been faxed to [facility]. Addendum entered by [facility] 11/23/22 09:37: Patient/spouse are agreeable to home health services and prefer to use [facility]. Patient information/order has been faxed to [facility] this AM. I will follow up with Anaid at [facility] once information/order is reviewed. Original Note: I spoke with patient this AM regarding home situation and plans once medically stable for discharge. Patient was able to answer all questions: name, birthday, location and year. Patient stated that she does drink alcohol at night if she can not sleep. Patient does not remember the events of last night. Patient stated that she does well at home and does not use any ambulatory assistance. Patient stated that she drives, does the grocery shopping and housework. At this point APS does not need to be consulted. The plan for this patient is to discharge home tomorrow w/ pending no setbacks. Patient did not need any further needs at home.
--- NOTE | 2022-11-20 15:18 | PC.NURSE ---
PT FOUND TO HAVE IV GONE WITH GAUZE AND COBAND AROUND IT. PT STATES SHE TOOK IV OUT BECAUSE IT DIDN'T LOOK RIGHT, AND I DON'T WANT ANOTHER ONE .
--- NOTE | 2022-11-20 17:07 | PC.NURSE ---
PT HAS BEEN A&OX4 THIS SHIFT, HOWEVER SEEMS OFF AT TIMES. PT USED PEN IN ROOM EYELINER, AND TOOK HER IV OUT. PT DOES NOT REMEMBER ANY EVENTS FROM LAST NIGHT. WALKING INDEPENDENTLY IN ROOM, AND IN HALLWAY. PT HAS HAD NO NEEDS OR C/O THUS FAR THIS SHIFT. VSS.
--- NOTE | 2022-11-20 18:35 | PC.NURSE ---
COURTESY TECH NOTE; ROUNDED ON PT, PT DENIED NEED FOR DRINK, ASSISTANCE WITH RESTROOM, AND NEED TO REPOSITION. PT REQUESTING MEDICATION, NURSE NOTIFIED. CALL LIGHT WITHIN REACH, NO FURTHER REQUESTS AT THIS TIME JAMIN CARRILLO
--- NOTE | 2022-11-20 21:36 | EXP.PN ---
Subjective *Date: 11/20/22 *Time: 21:44 Exam Data for Last 24 hours Vital signs and Labs for Last 24 Hours: Temp Pulse Resp BP Pulse Ox 98.5 F 78 20 162/85 H 95 11/20/22 19:37 11/20/22 19:37 11/20/22 19:37 11/20/22 19:37 11/20/22 19:37 Laboratory Results - last 24 hr 11/19/22 22:20: Urine Color Straw, Urine Appearance Clear, Urine pH 5.5, Ur Specific Ehrhardt 1.015, Urine Protein Negative, Urine Glucose (UA) Negative, Urine Ketones Negative, Urine Blood Negative, Urine Nitrate Negative, Urine Bilirubin Negative, Urine Urobilinogen 0.2, Ur Leukocyte Esterase Negative, Urine RBC None, Urine WBC None, Ur Squamous Epith Cells Occasional, Urine Bacteria None 11/19/22 22:30: PT 9.5 L, INR 0.87 L, APTT 23.6 11/19/22 22:30: Sodium 145, Potassium 4.3, Chloride 107, Carbon Dioxide 26, Anion Gap 16.3 H, BUN 19 H, Creatinine 0.80, Estimated GFR 70, Est GFR ( Amer) 85, Glucose 97, Calcium 9.3, Total Bilirubin < 0.1 L, AST 36, ALT 23, Alkaline Phosphatase 128 H, Total Creatine Kinase 82, Troponin I < 0.01, Total Protein 7.5, Albumin 4.2, Globulin 3.3 H, Albumin/Globulin Ratio 1.3 11/19/22 22:30: Plasma/Serum Alcohol 301 H 11/19/22 22:30: WBC 11.0 H, RBC 4.28, Hgb 13.2, Hct 41.3, MCV 96.4, MCH 30.8, MCHC 31.9, RDW 15.1, Plt Count 312, MPV 9.4, Neut % (Auto) 58.1, Lymph % (Auto) 32.0, Hickman % (Auto) 4.8, Eos % (Auto) 4.5, Baso % (Auto) 0.6, Neut # (Auto) 6.4, Lymph # (Auto) 3.5, Hickman # (Auto) 0.5, Eos # (Auto) 0.5 H, Baso # (Auto) 0.1 11/19/22 23:03: Urine Opiates Screen Negative, Urine Methadone Screen Negative, Ur Barbituates Screen Negative, Ur Phencyclidine Scrn Negative, Ur Amphetamines Screen Negative, U Benzodiazepines Scrn Negative, Urine Cocaine Screen Negative, U Marijuana (THC) Screen Positive H 11/20/22 01:26: Specimen Source Left radial, O2 % 2lpm, ABG pH 7.38, ABG pCO2 40.1, ABG pO2 88.8, ABG HCO3 23.0, ABG Total CO2 24.3, ABG O2 Saturation 96, ABG Base Excess -2.1, Shaquille Test Patient unable 11/20/22 01:40: SARS-CoV-2 (PCR) Not detected, Influenza A Untype (PCR) Not detected, Influenza Type B (PCR) Not detected 11/20/22 06:18: Troponin I < 0.01 I & O for Last 24 hours: Intake & Output 11/17/22 11/18/22 11/19/22 11/20/22 23:59 23:59 23:59 23:59 Intake Total 480 / 480 Output Total 900 / 900 Balance -420 / -420 Weight 91.172 kg 87.5 kg Constitutional Constitutional: no acute distress *Routine HEENT Exam Head: Present normocephalic ENT: Present mucous membranes moist *Routine Neck Exam Neck: Present supple and full ROM *Routine Respiratory Exam Respiratory: Present CTA bilaterally *Routine Cardiovascular Exam Cardiovascular: Present RRR and Normal S1 *Routine Abdominal Exam Abdominal: Present soft and normoactive bowel sounds *Routine Rectal Exam Comments: deferred *Routine Exam Comments: deferred *Routine Extremities Exam Extremities: Present normal capillary refill *Routine Skin Exam Skin: Present intact and warm *Routine Neurological Exam Neurological: Present alert and oriented X3 Assessment and Plan *Assessment and plan (1) Hyperlipidemia: Status: Acute Category: Medical Code(s): E78.5 - Hyperlipidemia, unspecified (2) Hypertension: Status: Acute Category: Medical Code(s): I10 - Essential (primary) hypertension (3) COPD (chronic obstructive pulmonary disease): Status: Acute Category: Medical Code(s): J44.9 - Chronic obstructive pulmonary disease, unspecified (4) Alcohol intoxication: Status: Acute Category: Medical Code(s): F10.929 - Alcohol use, unspecified with intoxication, unspecified Plan - Fall reports fell after drinking bottle of wine CT imaging with no acute findings Altered mental status in the ER, receiving iv ativan PT/OT in the wi Bellstand Attendant consulted - Altered Mental Status Alcohol level 301 CT of the head with no acute findings reports drank a bottl
[2022-11-21] VITALS: PULSE 70
[2022-11-21 03:59] VITALS: BP 123/70; PULSE 70; RESP 20; TEMP 36.8; O2SAT 93; BMI 32.5
[2022-11-21 04:00] VITALS: PULSE 70
--- NOTE | 2022-11-21 05:24 | PC.NURSE ---
Patient A&Ox4 at beginning of shift, complains of headache. Treated with scheduled aspirin per patient request. VSS. No other complaints or acute events noted and patient rested comfortably with eyes closed through most of shift.
[2022-11-21 08:00] VITALS: BP 169/72; PULSE 75; PULSE 82; RESP 17; TEMP 36.6; O2SAT 96
[2022-11-21 08:01] LABS: Basophils % 0.5 % (0.1-2.0); Eosinophils # 0.4 K/mm3 (0.0-0.4); Eosinophils % 5.1 % (0.1-12.0); Hematocrit 36.5 % (37.0-47.0); Hemoglobin 11.9 g/dL (12.2-16.2); Lymphocytes # 1.6 K/mm3 (0.7-4.5); Lymphocytes % 18.3 % (10-50); Mean Corpuscular HGB Conc 32.5 g/dL (31.8-35.4); Mean Corpuscular Hemoglobin 31.5 pg (27.0-31.2); Mean Corpuscular Volume 96.8 fl (81-99); Mean Platelet Volume 8.5 fl (7.4-10.4); Monocytes # 0.3 K/mm3 (0.1-1.0); Neutrophils # 6.1 K/mm3 (1.8-7.8); Neutrophils % 72.1 % (37.0-80.0); Platelet Count 239 K/mm3 (142-424); Red Blood Count 3.77 M/mm3 (4.20-5.40); White Blood Count 8.5 K/mm3 (4.8-10.8)
[2022-11-21 08:06] LABS: Chloride 98 mmol/L (98-107); Potassium 3.9 mmoL/L (3.5-5.1); Sodium 136 mmol/L (136-145)
[2022-11-21 08:09] LABS: Alanine Aminotransferase 35 U/L (12-78); Albumin/Globulin Ratio 1.4 (1.1-1.8); Alkaline Phosphatase 84 U/L (38-126); Anion Gap 12.9 mEq/L (5-15); Aspartate Amino Transferase 42 U/L (14-36); Bilirubin,Total 0.6 mg/dl (0.2-1.3); Blood Urea Nitrogen 13 mg/dl (7-17); Calcium 8.6 mg/dl (8.4-10.2); Carbon Dioxide 29 mmol/L (22.0-30.0); Creatinine Clearance Estimated 73 mL/min (50-200); Estimated Glomerular Filt Rate 70 ml/min (>60); GFR (African American) 85 ML/MIN (>60); Globulin 2.8 g/dL (1.3-3.2); Glucose 217 mg/dl (74-100); Magnesium 1.4 mg/dl (1.6-2.3); Total Protein,Serum 6.8 g/dl (6.3-8.2)
[2022-11-21 09:11] VITALS: O2SAT 93
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
== END 2022-11-21 10:50 | disposition home or self-care (01) ==
LOC: ER 11-20 01:34 → 2ND 11-20 01:50
PROVIDERS: Admitting Provider Internal Medicine; Emergency Provider Emergency Medicine; Visit Provider Internal Medicine
DX: F17.210 Nicotine dependence, cigarettes, uncomplicated; E11.9 Type 2 diabetes mellitus without complications; Z79.84 Long term (current) use of oral hypoglycemic drugs; Z79.899 Other long term (current) drug therapy; J44.9 Chronic obstructive pulmonary disease, unspecified; I10 Essential (primary) hypertension; E78.5 Hyperlipidemia, unspecified; F10.929 Alcohol use, unspecified with intoxication, unspecified; Z99.81 Dependence on supplemental oxygen; Y90.8 Blood alcohol level of 240 mg/100 ml or more; Z79.01 Long term (current) use of anticoagulants; Y92.019 Unspecified place in single-family (private) house as the place of occurrence of the external cause; W03.XXXA Other fall on same level due to collision with another person, initial encounter
CPT/HCPCS: G0378; 36415; 51702; 70450; 71045; 71250; 72125; 72128; 72131; 72170; 74176; 80053; 80305; 81001; 82550; 82803; 83735; 84484; 85025; 85610; 85730; 87635; 87636; 93005; 93041; 94640; 97163; 99285; C9803; U0003; U0005